=== PATIENT | female | born 1950 | race American Indian/Alaskan Native ===

== ENCOUNTER 2016-07-17 16:57 | Inpatient (IN) | payer MEDICARE ==
[2016-07-17] MEDS ORDERED: TYLENOL PO PRN (17:29)
[2016-07-17] MEDS ORDERED: SENOKOT PO PRN (17:29)
[2016-07-17] MEDS ORDERED: DULCOLAX PR PRN (17:29)
[2016-07-17] MEDS ORDERED: D50W (25GM) IV PRN (17:29)
[2016-07-17] MEDS ORDERED: AMBIEN PO PRN (17:34)
--- NOTE | 2016-07-17 17:37 | History and Physical Report ---
History of Present Illness Date: 07/17/16 Referring Facility: [facility] Date of admission: 07/17/16 17:28 Chief Complaint: right osteoarthritis, s/p right TKA History of present illness: POST ADMISSION PHYSICIAN EVALUATION ONSET DATE: 07/15/2016 IMPAIRMENT GROUP CODE: 08.51 ETIOLOGIC DIAGNOSIS: right TKA secondary to Osteoarthritis STATUS CHANGES SINCE PREADMISSION SCREENING: PAS has been reviewed. In comparison, pt is more alert on admission; pain well controlled when at rest. Pt continues to have functional deficits with self cares and mobility. Pt remains an appropriate candidate for IPR. PREVIOUS FUNCTIONAL STATUS: Independent with ADLs, transfer; ambulated with RW CURRENT FUNCTIONAL STATUS: Independent to maxA for ADLs; Justin for transfers; CGA 20 feet with RW HPI 66 y.o.morbidly obese female admitted to [facility] for an elective right TKA secondary to osteoarthritis. Pt reports progressively worsening pain and need for assistive device for gait; failed conservative therapy. Post-op course notable for drop in H/H from 12.4/39.6 to 10.8/35.5; hypotension (lowest 83/42) ; hyperkalemia (5.7); gait dysfunction. Pt noted to have significant decline in function following therapy evaluations. Pt is now admitted for aggressive therapies and ongoing medical management. Past History Past Medical History: arthritis, hypertension, hyperlipidemia Past Surgical History: total knee replacement (right) Social history: Lives alone (brother to be with her following surgery). denies : smoking, alcohol abuse Family history: diabetes, hypertension Medications and Allergies Allergies Allergy/AdvReac Type Severity Reaction Status Date / Time Sulfa (Sulfonamide Allergy Rash, Verified 02/20/15 15:43 Antibiotics) swelling Home Medications Medication Instructions Recorded Confirmed Last Taken Type Glimepiride 2.5 mg PO DAILY 06/05/13 07/15/16 07/14/16 09:30 History Simvastatin 40 mg PO QPM 06/05/13 07/15/16 07/13/16 21:00 History Lisinopril/Hydrochlorothiazide 1 tab PO QDAY 02/20/15 07/15/16 07/15/16 07:00 History [Zestoretic 20-12.5 mg] Ergocalciferol [Vitamin D2] 1 cap PO QWEEK 07/01/16 07/15/16 Unknown History Active Meds: Active Medications Acetaminophen (Tylenol) 650 mg PO Q4H PRN PRN Reason: Pain MILD(1-3)/Fever >100.5/BOATENG Aspirin (Aspirin) 325 mg PO BID [facility] Bisacodyl (Dulcolax) 10 mg VA QDAY PRN PRN Reason: Constipation unrelieved by MOM Dextrose (D50w (25gm)) 50 ml IV PRN PRN PRN Reason: Hypoglycemia Docusate Sodium (Colace) 100 mg PO BID [facility] Ergocalciferol (Vitamin D2) unit PO QWEEK [facility] Insulin Aspart (Novolog) 0 units SUB-Q ACHS [place] PRN Reason: Protocol Miscellaneous Medication (Lisinopril/Hydrochlorothiazide [Zestoretic 20-12.5 Mg] ) 1 tab PO QDAY [facility] Oxycodone/Acetaminophen (Percocet 5/325) 1 tab PO Q6H PRN PRN Reason: Pain, Moderate (4-6) Senna (Senokot) 8.6 mg PO Q12H PRN PRN Reason: Laxative Effect Simvastatin (Zocor) 40 mg PO QHS [facility] Review of Systems All systems: negative Constitutional: poor appetite Cardiovascular: no chest pain Respiratory: no cough Gastrointestinal: constipation Genitourinary Female: other (downey) Musculoskeletal: gait dysfunction, other (right knee pain) Exam - Constitutional General appearance: no acute distress, other (sitting up in bed) - EENT Eyes: EOM intact ENT: hearing intact - Neck Neck: supple, normal ROM - Respiratory Respiratory effort: normal Respiratory: bilateral: CTA - Cardiovascular Rhythm: regular Heart Sounds: Present: S1 & S2 - Extremities Extremity abnormal: edema (right knee), other (kelli in place to right knee; minimal bloody drainage noted) - Gastrointestinal General gastrointestinal: Present: soft, non-tender, non-distended, normal bowel sounds - Musculoskeletal Musculoskeletal: other (intact right ankle DF/PF; LLE and BUE within normal limits) - Neurologic Neurologic: CNII-XII intact, other (sensation grossly intact) - Psychiatric Psychiatric: appropriate mood/affect, intact judgment & insight, memory intact, cooperative Assessment and Plan Assessment and plan: 66 y.o.morbidly obese female s/p right TKA secondary to osteoarthritis. Post- op course significant for hypotension, gait dysfunction, hyperkalemia. The patient is medically stable, however, requires ongoing medical management. Pt is appropriate for inpatient rehabilitation admission and is thought to be able to tolerate at least 3 hours of therapy a day, 5 days a week including 1.5 hours of physical therapy and 1.5 hours of occupational therapy. Patient is able to understand and follow basic directions and has attainable rehab goals. Potential barriers/complications include infection, anemia, syncopem hypotension , DVT, PE, falls, hypoglycemia, uncontrolled pain. Plan 1. Rehabilitation- Pt will undergo multidisciplinary/integrative rehab PT/OT, Nursing. Areas to be addressed include, but are not limited to PT for mobility , strengthening, transfer training, ROM, endurance, stairs, balance; OT for ADLs , household tasks, adaptive equipment; Nursing for carryover of therapies, pain control, education, skin integrity, medication management, bowel/bladder management; Nutrition as needed; shared services representative for discharge planning and equipment needs. Potential interventions include appropriate assistive device or adaptive equipment. Expected overall level of functional improvement by discharge is Krysten for ADLs, gait, transfers. Pt will tentatively be discharged home with outpatient PT. Estimated length of stay is 7-10 days. 2. s/p right TKA- pain control; dressing changes; d/c kelli on POD #14 3. HTN- resume home meds; follow closely to avoid hypotension 4. DM- continue home regimen; pt with decreased appetite, follow closely to avoid hypoglycemia 5. hyperkalemia- recheck labs in AM 6. constipation- Colace BID, prn laxative 7. DVT px- ASA 325mg BID per Ortho - Patient Problems (1) DJD (degenerative joint disease) of knee Current Visit: No Status: Chronic Qualifiers: Osteoarthritis type: primary Laterality: right Qualified Code(s): M17.11 - Unilateral primary osteoarthritis, right knee (2) Status post total right knee replacement Current Visit: Yes Status: Acute (3) Unsteady gait Current Visit: Yes Status: Acute (4) HTN (hypertension) Current Visit: Yes Status: Chronic Qualifiers: Hypertension type: essential hypertension Qualified Code(s): I10 - Essential (primary) hypertension (5) Diabetes Current Visit: Yes Status: Chronic Qualifiers: Diabetes mellitus type: type 2 Diabetes mellitus complication status: with hyperglycemia Diabetes mellitus complication detail: D Diabetic retinopathy severity: D Proliferative retinopathy type: P Diabetes mellitus macular edema: D Diabetes mellitus prison insulin use: without prison use Laterality: L Chronic kidney disease stage: C Qualified Code(s): E11.65 - Type 2 diabetes mellitus with hyperglycemia (6) Morbid obesity due to excess calories Current Visit: Yes Status: Acute
[2016-07-17] MEDS: ASPIRIN PO SCH (22:01)
[2016-07-17] MEDS: OxyCONTIN PO SCH (22:02)
[2016-07-17] MEDS: ZOCOR PO SCH (22:02)
[2016-07-17] MEDS: COLACE PO SCH (22:02)
[2016-07-17] MEDS: PERCOCET 5/325 PO PRN (22:06)
[2016-07-17] MEDS: NOVOLOG SUB-Q SCH (22:14)
[2016-07-18 05:05] LABS: Basophils % (Auto) 0.6 % (0.0-1.8); Eosinophils % (Auto) 0.3 % (0.0-4.3); Hematocrit 25.9 % (30.3-42.9); Hemoglobin 8.5 gm/dl (10.1-14.3); Mean Corpuscular HGB Conc 33 % (30-34); Mean Corpuscular Hemoglobin 29 pg (28-32); Mean Corpuscular Volume 90 fl (79-97); Platelet Count 259 K/mm3 (140-440); Red Blood Count 2.87 M/mm3 (3.65-5.03); Red Cell Distribution Width 13.5 % (13.2-15.2); White Blood Count 11.2 K/mm3 (4.5-11.0)
[2016-07-18 05:33] LABS: Albumin 2.7 g/dL (3.9-5); Albumin/Globulin Ratio 0.7 %; Alkaline Phosphatase 99 units/L (35-129); Bilirubin,Total 0.4 mg/dL (0.1-1.2); Blood Urea Nitrogen 21 mg/dL (7-17); Calcium 8.4 mg/dL (8.4-10.2); Carbon Dioxide 23 mmol/L (22-30); Chloride 102.7 mmol/L (98-107); Glucose 84 mg/dL (65-100); Sodium 138 mmol/L (137-145); Total Protein 6.4 g/dL (6.3-8.2)
[2016-07-18 05:52] LABS: Alanine Aminotransferase 7 units/L (7-56); Anion Gap 17 mmol/L; Potassium 4.2 mmol/L (3.6-5.0)
[2016-07-18] MEDS ORDERED: NON-FORMULARY (Lisinopril/Hydrochlorothiazide [Zestoretic 20-12.5 Mg] 1 TAB) PO SCH (08:00)
[2016-07-18] MEDS: NOVOLOG SUB-Q SCH ×4 (08:21→21:43)
[2016-07-18] MEDS: AMARYL PO SCH (10:12)
[2016-07-18] MEDS: COLACE PO SCH ×2 (10:13→21:42)
[2016-07-18] MEDS: ASPIRIN PO SCH ×2 (10:13→21:42)
[2016-07-18] MEDS: THERAGRAN Tab PO SCH (10:14)
[2016-07-18] MEDS: OxyCONTIN PO SCH ×2 (10:15→21:42)
[2016-07-18] MEDS: ZESTRIL PO SCH (10:22)
[2016-07-18] MEDS: HCTZ PO SCH (10:23)
[2016-07-18] MEDS: PERCOCET 5/325 PO PRN (13:11)
[2016-07-18] MEDS: ZOCOR PO SCH (21:42)
[2016-07-19] MEDS: NOVOLOG SUB-Q SCH ×4 (08:53→22:04)
[2016-07-19] MEDS: HCTZ PO SCH (08:54)
[2016-07-19] MEDS: ASPIRIN PO SCH ×2 (08:54→22:04)
[2016-07-19] MEDS: COLACE PO SCH ×2 (08:55→22:04)
[2016-07-19] MEDS: AMARYL PO SCH (08:55)
[2016-07-19] MEDS: ZESTRIL PO SCH (08:55)
[2016-07-19] MEDS: THERAGRAN Tab PO SCH (08:55)
[2016-07-19] MEDS: OxyCONTIN PO SCH ×2 (10:22→22:04)
[2016-07-19] MEDS: ZOCOR PO SCH (22:04)
[2016-07-20 05:05] LABS: Hematocrit 24.7 % (30.3-42.9); Hemoglobin 8.1 gm/dl (10.1-14.3); Mean Corpuscular HGB Conc 33 % (30-34); Mean Corpuscular Hemoglobin 29 pg (28-32); Mean Corpuscular Volume 90 fl (79-97); Platelet Count 255 K/mm3 (140-440); Red Blood Count 2.75 M/mm3 (3.65-5.03); Red Cell Distribution Width 13.7 % (13.2-15.2); White Blood Count 8.3 K/mm3 (4.5-11.0)
[2016-07-20 05:29] LABS: Anion Gap 15 mmol/L; Blood Urea Nitrogen 33 mg/dL (7-17); Calcium 8.5 mg/dL (8.4-10.2); Carbon Dioxide 27 mmol/L (22-30); Chloride 100.7 mmol/L (98-107); Glucose 98 mg/dL (65-100); Potassium 4.8 mmol/L (3.6-5.0); Sodium 138 mmol/L (137-145)
[2016-07-20] MEDS: COLACE PO SCH ×2 (08:48→21:59)
[2016-07-20] MEDS: THERAGRAN Tab PO SCH (08:48)
[2016-07-20] MEDS: ZESTRIL PO SCH (08:48)
[2016-07-20] MEDS: HCTZ PO SCH (08:48)
[2016-07-20] MEDS: AMARYL PO SCH (08:49)
[2016-07-20] MEDS: ASPIRIN PO SCH ×2 (08:49→21:59)
[2016-07-20] MEDS: NOVOLOG SUB-Q SCH ×4 (08:49→22:00)
[2016-07-20] MEDS ORDERED: VITAMIN D2 PO SCH (10:00)
[2016-07-20] MEDS: OxyCONTIN PO SCH ×2 (10:35→21:59)
--- NOTE | 2016-07-20 12:28 | IRU Plan of Care ---
Interdisciplinary Plan of Care - IP IRU INTERDISCIPLINARY PLAN: [facility] Inpatient Rehab Unit Plan of Care IRU Interdisciplinary Care Plan Start: 07/17/16 20: 12 Freq: Admission then PRN Status: Active Document 07/20/16 09:09 DB (Rec: 07/20/16 09:13 DB [id number]) Interdisciplinary Problem List Interdisciplinary Problem List Interdisciplinary Problem List Impaired Bathing/Grooming Query Text:Answers will Trigger Problems Impaired Dressing and Outcomes on Worklist. Impaired Mobility Impaired Transfers Impaired Toileting Pain Management Knowledge Deficits Impaired Skin/Tissue Integrity Impaired Safety Medications Education Diabetes Education IRU Interdisciplinary Care Plan Therapy Services Therapy Services Will Include: Physical Therapy Query Text:Patient will be seen for a Occupational Therapy minimum of 3 hours of daily therapy 5 out of 7 days a week. Therapy intensity may be adjusted within a 7 consecutive day period to effectively serve the individual needs of the patient. Treatment Frequency/Intensity/Duration Treatment Frequency 5 days per week Treatment Intensity 1.5 hours (PT/OT each) per week Treatment Duration 10-14 days Problem Area: Eating/Swallowing Eating/Swallowing Outcomes Eating/Swallowing Interventions Problem Area: Bathing/Grooming Bathing/Grooming Outcomes Improve [place] w/ Grooming Improve Osborne w/ Bathing Bathing/Grooming Interventions ADL Training Use of Assistive Devices Therapeutic Exercise Therapeutic Activity Balance Work Activity Tolerance Work Patient/Caregiver Education Problem Area: Dressing Dressing Outcomes Improve [place] w/ UB Dressing Improve Osborne w/ LB Dressing Dressing Interventions ADL Training Use of Assistive Devices Therapeutic Exercise Balance Work Patient/Caregiver Education Problem Area: Mobility Mobility Outcomes Improve [place] w/ Bed Mobility Improve [place]borne w/ Ambulation Improve [place] w/ Stairs /Curb Improve [place]borne w/ Wheelchair Mobility Interventions Therapeutic Exercise Neuromuscular Re-Ed. Use of Assistive Devices Patient/Caregiver Education Bed Mobility Work Gait Training W/C Mobility Work Problem Area: Transfers Transfers Outcomes Improve [place] w/ Bed Transfers Improve [place] w/ Toilet Transfers Improve [place] w/ Tub/ Shower Transfers Improve Osborne w/ Car Transfers Transfers Interventions Transfer Training Therapeutic Exercise Activity Tolerance Work Use of Assistive Devices Patient/Caregiver Education Problem Area: Bowel/Bladder Managment Bowel/Bladder Outcomes Bowel/Bladder Interventions Problem Area: Toileting Toileting Outcomes Improve [place] w/ Toileting Toileting Interventions ADL Training Balance Work Use of Assistive Devices Patient/Caregiver Education Problem Area: Nutrition Nutrition Outcomes Understand and Comply w/ Diet Improve/Maintain Oral Intake Nutrition Interventions Nutritional Counseling Monitor Nutrient Intake Problem Area: Comprehension Comprehension Outcomes Comprehension Interventions Problem Area: Expression Expression Outcomes Expression Interventions Problem Area: Problem Solving Problem Solving Outcomes Problem Solving Interventions Problem Area: Memory Memory Outcomes Memory Interventions Problem Area: Pain Management Pain Management Outcomes Demonstrate/Verbalize Pain Strategies Pain Management Interventions Medication Management Stress Management Use of Devices/Modalities ( TENS, hot pack, cold pack, etc .) Positioning/Turning Patient/Caregiver Education Problem Area: Knowledge Deficits Knowledge Deficits Outcomes Demonstrate Ability to Manage Blood Glucose Demonstrate Understanding of Anticoagulation Verbalize Precautions Knowledge Deficits Interventions Disease/Injury/Sx. Intervention Education Medication Use Education Body Mechanics/Joint Protection Education Disease Management Education Health Maintainence Education Safety Education Energy Conservation Education Problem Area: Skin/Tissue Integrity Skin/Tissue Integrity Outcomes Exhibit Healing of Wound/ Incision Demonstrate Understanding of Pressure Relief Skin/Tissue Integrity Interventions Skin/Wound Care Pressure Relief Instruction Dressing Change Education Positioning/Turning Problem Area: Social Interaction Social Interaction Outcomes Social Interaction Interventions Problem Area: Adjustment to Disability Adjustment to Disability Outcomes Adjustment to Disability Interventions Problem Area: Discharge Concerns Discharge Concerns Outcomes Discharge Home w/ Necessary Equipment Have Home Health/Outpatient Services Discharge Concerns Interventions Discharge Planning Family/Caregiver Conference Family/Caregiver Training Problem Area: Community Reintegration Community Reintegration Outcomes Demonstrate Understanding of Community Resources Community Reintegration Interventions Provide Community Resources Problem Area: Home Management Home Management Outcomes Home Management Interventions Problem Area: Safety Safety Outcomes Provide Safe Environment Perform Selfcare Safely Demonstrate Good Safety w/ Transfers/Mobility Safety Interventions Identify Fall Risk [place] Pt. to Environment Reduce Environmental Hazards Problem Area: Medication Education Medication Education Outcomes Patient/Caregiver will Verbalize Understanding of Medications Medication Education Interventions Explain Administration/Side Effects/Interactions Problem Area: Diabetes Education Diabetes Education Outcomes Demonstrate Knowledge of Resources Availlable in Diabetic Ed. Folder Diabetes Education Interventions Give Pt. Diabetes Education Folder Discuss Pathophysiology of Diabetes Review Instruction on Making Appointment for Outpatient Program Problem Area: Oxygenation Oxygenation Outcomes Oxygenation Interventions Problem Area: Cardiovascular Cardiovascular Outcomes Cardiovascular Interventions Physician Only Medical Prognosis and Rehabilitation Patient demonstrates good Potential (Completed by Physician) rehab potential. Medical Prognosis: Good This plan of care has been developed based on the findings from the pre- admission assessment, post admission physician evaluation, information gathered from the assessments from all therapy disciplines and other pertinent clinicians. The plan of care has been reviewed and discussed in collaboration with the interdisciplinary team. The plan of care will be reviewed and updated at least weekly. 66 y.o.morbidly obese female s/p right TKA secondary to osteoarthritis. Post- op course significant for hypotension, gait dysfunction, hyperkalemia. The patient remains at risk for infection, anemia, syncope, hypotension, DVT, PE, falls, hypoglycemia, uncontrolled pain. Blood pressure continues to fluctuate ( SBP range 100-181); also with hypoglycemia (low of 52 since admission) likely due to limited po intake. Will need ongoing management of DM and HTN; ongoing pain control. Pt complains of constipation on today. Will modify bowel regimen. Hyperkalemia has resolved. Pt continues with functional deficits; remains an appropriate candidate for IRU admission.
--- NOTE | 2016-07-20 12:38 | Progress Note ---
Assessment and Plan 66 y.o.morbidly obese female s/p right TKA secondary to osteoarthritis - s/p right TKA- healing well, continue with current regimen for pain control - unsteady gait- ongoing gait training with PT - HTN- fluctuating blood pressures; hold HCTZ for now due to hypotension and elevated BUN; follow - DM- hypoglycemia noted over weekend; improved po intake on yesterday; follow to avoid hypoglycemia - hyperkalemia- resolved - constipation- Colace BID, change senna to scheduled - DVT px- ASA 325mg BID per Ortho - Patient Problems (1) DJD (degenerative joint disease) of knee Current Visit: No Status: Chronic Qualifiers: Osteoarthritis type: primary Laterality: right Qualified Code(s): M17.11 - Unilateral primary osteoarthritis, right knee (2) Status post total right knee replacement Current Visit: Yes Status: Acute (3) Unsteady gait Current Visit: Yes Status: Acute (4) HTN (hypertension) Current Visit: Yes Status: Chronic Qualifiers: Hypertension type: essential hypertension Qualified Code(s): I10 - Essential (primary) hypertension (5) Diabetes Current Visit: Yes Status: Chronic Qualifiers: Diabetes mellitus type: type 2 Diabetes mellitus complication status: with hyperglycemia Diabetes mellitus complication detail: D Diabetic retinopathy severity: D Proliferative retinopathy type: P Diabetes mellitus macular edema: D Diabetes mellitus intermediate manager insulin use: without halfway use Laterality: L Chronic kidney disease stage: C Qualified Code(s): E11.65 - Type 2 diabetes mellitus with hyperglycemia (6) Morbid obesity due to excess calories Current Visit: Yes Status: Acute Subjective Date of service: 07/20/16 Principal diagnosis: right TKA Interval history: Pt seen in room this AM, F/U IPR course, s/p right TKA. Pt reports constipation ; ongoing pain Objective - Constitutional Vitals: Vital Signs - 12hr 07/20/16 08:00 Temperature 97.6 F Pulse Rate [ 109 H Left Brachial] Respiratory 20 Rate Blood Pressure 125/54 [Left Arm] O2 Sat by Pulse 96 Oximetry General appearance: Present: mild distress (secondary to pain), obese - EENT Eyes: EOM intact ENT: hearing intact - Neck Neck: supple, normal ROM - Respiratory Respiratory effort: normal Respiratory: bilateral: CTA - Cardiovascular Rhythm: regular Heart Sounds: Present: S1 & S2 Extremity abnormal: edema (right knee), other (kelli intact to right knee; no drainage; mild redness at insertion site of kelli) - Gastrointestinal General gastrointestinal: Present: soft, non-tender, non-distended, normal bowel sounds - Neurologic Neurologic: CNII-XII intact, moves all extremities - Psychiatric Psychiatric: appropriate mood/affect, intact judgment & insight, memory intact, cooperative - Allied health notes Allied health notes reviewed: PT (CGA-Justin for transfers, bed mobility, gait), OT (SBA for transfers; s/u for LB dressing) - Labs CBC & Chem 7: 07/20/16 04:48 07/20/16 04:48 Labs: Abnormal lab results 07/19/16 07/19/16 07/19/16 Range/Units 12:41 13:16 14:54 RBC (3.65-5.03) M/mm3 Hgb (10.1-14.3) gm/dl Hct (30.3-42.9) % BUN (7-17) mg/dL POC Glucose 56 L 66 L 114 H (70-105) 07/19/16 07/19/16 07/20/16 Range/Units 17:07 18:25 04:48 RBC 2.75 L (3.65-5.03) M/mm3 Hgb 8.1 L (10.1-14.3) gm/dl Hct 24.7 L (30.3-42.9) % BUN (7-17) mg/dL POC Glucose 52 L 106 H (70-105) 07/20/16 07/20/16 Range/Units 04:48 11:36 RBC (3.65-5.03) M/mm3 Hgb (10.1-14.3) gm/dl Hct (30.3-42.9) % BUN 33 H (7-17) mg/dL POC Glucose 112 H (70-105)
[2016-07-20] MEDS: SENOKOT PO SCH (14:58)
[2016-07-20] MEDS: ZOCOR PO SCH (21:59)
[2016-07-21] MEDS: SENOKOT PO SCH ×2 (01:10→13:55)
[2016-07-21] MEDS: AMARYL PO SCH (08:47)
[2016-07-21] MEDS: NOVOLOG SUB-Q SCH ×4 (08:47→22:00)
[2016-07-21] MEDS: ASPIRIN PO SCH ×2 (08:48→21:59)
[2016-07-21] MEDS: OxyCONTIN PO SCH ×3 (08:48→21:59)
[2016-07-21] MEDS: COLACE PO SCH ×2 (08:49→21:59)
[2016-07-21] MEDS: THERAGRAN Tab PO SCH (08:49)
[2016-07-21] MEDS: ZESTRIL PO SCH (08:53)
[2016-07-21] MEDS: PERCOCET 5/325 PO PRN ×2 (13:55→22:04)
--- NOTE | 2016-07-21 16:35 | Progress Note ---
Assessment and Plan 66 y.o.morbidly obese female s/p right TKA secondary to osteoarthritis - s/p right TKA- healing well, continue with current regimen for pain control - unsteady gait- CGA for gait with RW - HTN- stable; continue to follow - DM- continues with intermittent hypoglycemia and fluctuating po intake; will d /c amaryl until oral intake improves - constipation- resolved - DVT px- ASA 325mg BID per Ortho - team conference held on today- pt is s/u for eating, grooming, and UB dressing ; SBA for UB dressing, toilet/shower transfers; supervision for bed/chair/WC transfers; Krysten for toileting and bed mobility; Justin for LB dressing; CGA for 230 feet with RW. Anticipated d/c date 07/24 vs 07/27 based on progress. - Patient Problems (1) DJD (degenerative joint disease) of knee Current Visit: No Status: Chronic Qualifiers: Osteoarthritis type: primary Laterality: right Qualified Code(s): M17.11 - Unilateral primary osteoarthritis, right knee (2) Status post total right knee replacement Current Visit: Yes Status: Acute (3) Unsteady gait Current Visit: Yes Status: Acute (4) HTN (hypertension) Current Visit: Yes Status: Chronic Qualifiers: Hypertension type: essential hypertension Qualified Code(s): I10 - Essential (primary) hypertension (5) Diabetes Current Visit: Yes Status: Chronic Qualifiers: Diabetes mellitus type: type 2 Diabetes mellitus complication status: with hyperglycemia Diabetes mellitus complication detail: D Diabetic retinopathy severity: D Proliferative retinopathy type: P Diabetes mellitus macular edema: D Diabetes mellitus laborer marine terminal insulin use: without laborer marine terminal use Laterality: L Chronic kidney disease stage: C Qualified Code(s): E11.65 - Type 2 diabetes mellitus with hyperglycemia (6) Morbid obesity due to excess calories Current Visit: Yes Status: Acute Subjective Date of service: 07/21/16 Principal diagnosis: right TKA Interval history: Pt seen in room this AM, F/U IPR course, s/p right TKA. Constipation resolved. Pain is well controlled. Pt reports that she does not want to take celebrex as this has made her feel "loopy" in the past; will place as adverse reaction and discontinue Objective - Constitutional Vitals: Vital Signs - 12hr 07/21/16 07/21/16 08:30 08:53 Temperature 97.7 F Pulse Rate 85 Pulse Rate [ 85 Left Brachial] Respiratory 18 Rate Blood Pressure 110/52 Blood Pressure 110/52 [Left Arm] O2 Sat by Pulse 100 Oximetry General appearance: Present: no acute distress, obese, other (eating breakfast) - EENT Eyes: EOM intact ENT: hearing intact - Neck Neck: supple, normal ROM - Respiratory Respiratory effort: normal - Gastrointestinal General gastrointestinal: Present: soft, non-tender - Neurologic Neurologic: CNII-XII intact, moves all extremities - Psychiatric Psychiatric: appropriate mood/affect, intact judgment & insight, memory intact, cooperative - Labs CBC & Chem 7: 07/20/16 04:48 07/20/16 04:48 Labs: Abnormal lab results 07/20/16 07/21/16 Range/Units 20:54 15:57 POC Glucose 111 H 47 L (70-105)
[2016-07-21] MEDS: ZOCOR PO SCH (21:59)
[2016-07-22 04:59] LABS: Hematocrit 27.3 % (30.3-42.9); Mean Corpuscular HGB Conc 33 % (30-34); Mean Corpuscular Hemoglobin 30 pg (28-32); Mean Corpuscular Volume 90 fl (79-97); Platelet Count 337 K/mm3 (140-440); Red Blood Count 3.04 M/mm3 (3.65-5.03); Red Cell Distribution Width 13.9 % (13.2-15.2); White Blood Count 8.1 K/mm3 (4.5-11.0)
[2016-07-22 05:31] LABS: Anion Gap 19 mmol/L; BUN/Creatinine Ratio 43.75; Blood Urea Nitrogen 35 mg/dL (7-17); Carbon Dioxide 24 mmol/L (22-30); Chloride 99.3 mmol/L (98-107); Glucose 91 mg/dL (65-100); Potassium 4.7 mmol/L (3.6-5.0); Sodium 138 mmol/L (137-145)
[2016-07-22] MEDS: NOVOLOG SUB-Q SCH ×4 (08:36→21:35)
[2016-07-22] MEDS: ZESTRIL PO SCH (08:38)
[2016-07-22] MEDS: COLACE PO SCH ×2 (08:38→21:32)
[2016-07-22] MEDS: ASPIRIN PO SCH ×2 (08:38→21:32)
[2016-07-22] MEDS: SENOKOT PO SCH (08:39)
[2016-07-22] MEDS: OxyCONTIN PO SCH ×3 (08:39→21:32)
[2016-07-22] MEDS: THERAGRAN Tab PO SCH (08:39)
[2016-07-22] MEDS: PERCOCET 5/325 PO PRN (12:48)
--- NOTE | 2016-07-22 16:59 | Progress Note ---
Assessment and Plan 66 y.o.morbidly obese female s/p right TKA secondary to osteoarthritis - s/p right TKA- healing well, pain increased at RLE calf; doppler negative for DVT - unsteady gait- CGA-close supervision for gait with RW - HTN- stable - DM- no further hypoglycemia - acute blood loss anemia- improving - DVT px- ASA 325mg BID per Ortho - Patient Problems (1) DJD (degenerative joint disease) of knee Current Visit: No Status: Chronic Qualifiers: Osteoarthritis type: primary Laterality: right Qualified Code(s): M17.11 - Unilateral primary osteoarthritis, right knee (2) Status post total right knee replacement Current Visit: Yes Status: Acute (3) Unsteady gait Current Visit: Yes Status: Acute (4) HTN (hypertension) Current Visit: Yes Status: Chronic Qualifiers: Hypertension type: essential hypertension Qualified Code(s): I10 - Essential (primary) hypertension (5) Diabetes Current Visit: Yes Status: Chronic Qualifiers: Diabetes mellitus type: type 2 Diabetes mellitus complication status: with hyperglycemia Diabetes mellitus complication detail: D Diabetic retinopathy severity: D Proliferative retinopathy type: P Diabetes mellitus macular edema: D Diabetes mellitus intermediate manager insulin use: without intermediate manager use Laterality: L Chronic kidney disease stage: C Qualified Code(s): E11.65 - Type 2 diabetes mellitus with hyperglycemia (6) Morbid obesity due to excess calories Current Visit: Yes Status: Acute (7) Acute blood loss anemia Current Visit: Yes Status: Acute Subjective Date of service: 07/22/16 Principal diagnosis: right TKA Interval history: Pt seen in room this afternoon, F/U IPR course, s/p right TKA. Pt with worsening RLE swelling on today; also with calf tenderness Objective - Constitutional Vitals: Vital Signs - 12hr 07/22/16 07/22/16 08:00 08:38 Temperature 97.8 F Pulse Rate 76 Pulse Rate [ 76 Left Brachial] Respiratory 20 Rate Blood Pressure 126/54 Blood Pressure 126/54 [Left Arm] O2 Sat by Pulse 98 Oximetry General appearance: Present: mild distress (RLE pain), obese - EENT Eyes: EOM intact ENT: hearing intact - Neck Neck: supple, normal ROM - Respiratory Respiratory effort: normal Extremity abnormal: edema (RLE knee and below), tenderness (RLE palpation at calf and ankle) - Gastrointestinal General gastrointestinal: Present: soft, non-tender, non-distended - Neurologic Neurologic: CNII-XII intact - Psychiatric Psychiatric: appropriate mood/affect, intact judgment & insight, memory intact, cooperative - Allied health notes Allied health notes reviewed: PT (Krysten for bed mobility and transfers; close Supervision-CGA for gait), OT (Krysten to supervision for ADLs) - Labs CBC & Chem 7: 07/22/16 04:24 07/22/16 04:24 Labs: Abnormal lab results 07/21/16 07/21/16 07/22/16 Range/Units 17:33 21:41 04:24 RBC 3.04 L (3.65-5.03) M/mm3 Hgb 9.0 L (10.1-14.3) gm/dl Hct 27.3 L (30.3-42.9) % BUN (7-17) mg/dL POC Glucose 108 H 116 H (70-105) 07/22/16 07/22/16 Range/Units 04:24 16:40 RBC (3.65-5.03) M/mm3 Hgb (10.1-14.3) gm/dl Hct (30.3-42.9) % BUN 35 H (7-17) mg/dL POC Glucose 126 H (70-105)
[2016-07-22] MEDS: ZOCOR PO SCH (21:31)
[2016-07-23] MEDS: NOVOLOG SUB-Q SCH ×4 (07:10→22:38)
[2016-07-23] MEDS: PERCOCET 5/325 PO PRN ×2 (07:53→21:41)
[2016-07-23] MEDS: ASPIRIN PO SCH ×2 (07:54→21:43)
[2016-07-23] MEDS: SENOKOT PO SCH (07:54)
[2016-07-23] MEDS: COLACE PO SCH ×2 (07:54→21:42)
[2016-07-23] MEDS: THERAGRAN Tab PO SCH (07:54)
--- NOTE | 2016-07-23 08:31 | Vascular Lab Report ---
Right Lower Extremity Venous Duplex Study: Reason for Exam: Pain and swelling of the right lower extremity. Comments on the Right: All veins visualized are freely compressible without evidence of internal echogenicity. Flow is spontaneous and phasic throughout. No evidence of acute or chronic thrombus is seen in any of the vessels visualized. Soft tissue density is consistent with tissue edema. Comments on the Left: A limited duplex study was done of the proximal veins of the left lower extremity. All veins visualized are freely compressible without evidence of internal echogenicity. Flow is spontaneous and phasic throughout. No evidence of acute or chronic thrombus is seen in any of the vessels visualized. Impression: No evidence of acute or chronic deep venous thrombosis in the right lower extremity.
[2016-07-23] MEDS: OxyCONTIN PO SCH ×2 (09:09→21:42)
[2016-07-23] MEDS: ZESTRIL PO SCH (14:49)
--- NOTE | 2016-07-23 17:23 | Progress Note ---
Assessment and Plan 66 y.o.morbidly obese female s/p right TKA secondary to osteoarthritis - s/p right TKA- pain control; TEDs to assist with swelling - unsteady gait- CGA-close supervision for gait with RW - HTN/DM- stable on current regimen - DVT px- ASA 325mg BID per Ortho - tentative d/c home on tomorrow - Patient Problems (1) DJD (degenerative joint disease) of knee Current Visit: No Status: Chronic Qualifiers: Osteoarthritis type: primary Laterality: right Qualified Code(s): M17.11 - Unilateral primary osteoarthritis, right knee (2) Status post total right knee replacement Current Visit: Yes Status: Acute (3) Unsteady gait Current Visit: Yes Status: Acute (4) HTN (hypertension) Current Visit: Yes Status: Chronic Qualifiers: Hypertension type: essential hypertension Qualified Code(s): I10 - Essential (primary) hypertension (5) Diabetes Current Visit: Yes Status: Chronic Qualifiers: Diabetes mellitus type: type 2 Diabetes mellitus complication status: with hyperglycemia Diabetes mellitus complication detail: D Diabetic retinopathy severity: D Proliferative retinopathy type: P Diabetes mellitus macular edema: D Diabetes mellitus group home insulin use: without group home use Laterality: L Chronic kidney disease stage: C Qualified Code(s): E11.65 - Type 2 diabetes mellitus with hyperglycemia (6) Morbid obesity due to excess calories Current Visit: Yes Status: Acute Subjective Date of service: 07/23/16 Principal diagnosis: right TKA Interval history: Pt seen in room this afternoon, F/U IPR course, s/p right TKA. Ongoing RLE swelling, however, able to participate with PT; doppler negative for DVT Objective - Constitutional Vitals: Vital Signs - 12hr 07/23/16 07/23/16 09:11 14:49 Temperature 98.0 F Pulse Rate 76 Pulse Rate [ 86 Left Brachial] Respiratory 20 Rate Blood Pressure 137/69 Blood Pressure 116/44 [Left Arm] O2 Sat by Pulse 100 Oximetry General appearance: Present: no acute distress, obese - EENT Eyes: EOM intact ENT: hearing intact - Neck Neck: supple, normal ROM - Respiratory Respiratory effort: normal Extremity abnormal: edema (RLE) - Neurologic Neurologic: CNII-XII intact, moves all extremities - Psychiatric Psychiatric: appropriate mood/affect, intact judgment & insight, memory intact, cooperative - Allied health notes Allied health notes reviewed: PT (Krysten for bed mobility and transfers; CGA- close supervision for gait>300 feet with RW) - Labs CBC & Chem 7: 07/22/16 04:24 07/22/16 04:24 Labs: Abnormal lab results 07/22/16 07/23/16 07/23/16 Range/Units 21:02 05:53 12:44 POC Glucose 125 H 113 H 139 H (70-105) 07/23/16 Range/Units 16:48 POC Glucose 145 H (70-105)
[2016-07-23] MEDS: ZOCOR PO SCH (21:42)
[2016-07-24] MEDS: NOVOLOG SUB-Q SCH ×3 (07:20→17:52)
[2016-07-24] MEDS: SENOKOT PO SCH (08:22)
[2016-07-24] MEDS: COLACE PO SCH (08:22)
[2016-07-24] MEDS: ASPIRIN PO SCH (08:22)
[2016-07-24] MEDS: THERAGRAN Tab PO SCH (08:23)
[2016-07-24] MEDS: OxyCONTIN PO SCH (09:49)
[2016-07-24 10:13] LABS: Anion Gap 19 mmol/L; BUN/Creatinine Ratio 33.75; Blood Urea Nitrogen 27 mg/dL (7-17); Calcium 9.4 mg/dL (8.4-10.2); Carbon Dioxide 23 mmol/L (22-30); Chloride 103.2 mmol/L (98-107); Glucose 139 mg/dL (65-100); Potassium 4.2 mmol/L (3.6-5.0); Sodium 141 mmol/L (137-145)
--- NOTE | 2016-07-24 10:16 | Discharge Summary ---
Providers - Providers Date of Admission: 07/17/16 17:28 Date of discharge: 07/24/16 Attending physician: BRIGETTE TREVINO 07/17/16 17:29 Occupational Therapy Evaluate and Treat [CONS] Routine Comment: Reason For Exam: s/p right TKA Physical Therapy Evaluation and Treat [CONS] Routine Comment: Reason For Exam: s/p right TKA Primary care physician: ELIAS MENEZES Hospitalization Reason for admission: right TKA Condition: Stable Hospital course: 66 y.o.morbidly obese female admitted to [facility] for an elective right TKA secondary to osteoarthritis and progressively worsening of knee pain. Post-op course notable for drop in H/H from 12.4/39.6 to 10.8/35.5; hypotension (lowest 83/42); hyperkalemia (5.7); gait dysfunction. Pt noted to have significant decline in function following therapy evaluations and was admitted to IRU for aggressive therapies and ongoing medical management. Blood pressure stabilized during IRU course, no further hypotension at this time. Pt was also noted to have intermittent episodes of hypoglycemia early in course due to decreased po intake; amaryl was discontinued at that time. Blood sugars have now improved and pt can resume home med. H/H dropped to 8.1/24.7 at lowest; however, improved to 9.0/27.3 on 07/22. Hypokalemia resolved. Functionally, pt showed good progress during course. On admission, pt required min/CGA for bed mobility , transfers, and gait 100 feet with RW; supervision with eating and grooming; maxA fro LB dressing; Justin for remaining ADLs. At the time of discharge, pt has progressed to [place] for bed mobility, SBA-Eboni for transfers; SBA for gait 135 feet x2; [place] for toileting, toilet transfers, dressing, and bathing; supervision for shower transfers. Family training was completed with brother prior to discharge. Pt is stable for discharge home. >30 mins spent on discharge process, medication reconciliation; pt education; pt has outpt Ortho appt on Wednesday, 07/27 Disposition: DC/TX HOME UNDER HOME HEALTH - Discharge Diagnoses (1) DJD (degenerative joint disease) of knee Status: Chronic Qualifiers: Osteoarthritis type: primary Laterality: right Qualified Code(s): M17.11 - Unilateral primary osteoarthritis, right knee (2) Status post total right knee replacement Status: Acute (3) Unsteady gait Status: Acute (4) HTN (hypertension) Status: Chronic Qualifiers: Hypertension type: essential hypertension Qualified Code(s): I10 - Essential (primary) hypertension (5) Diabetes Status: Chronic Qualifiers: Diabetes mellitus type: type 2 Diabetes mellitus complication status: with hyperglycemia Diabetes mellitus complication detail: D Diabetic retinopathy severity: D Proliferative retinopathy type: P Diabetes mellitus macular edema: D Diabetes mellitus motor vehicle representative insulin use: without motor vehicle representative use Laterality: L Chronic kidney disease stage: C Qualified Code(s): E11.65 - Type 2 diabetes mellitus with hyperglycemia (6) Morbid obesity due to excess calories Status: Acute Core Measure Documentation - Palliative Care Palliative Care/ Comfort Measures: Not Applicable - Core Measures Any of the following diagnoses?: none Exam - Constitutional Vitals: Temp Pulse Resp BP Pulse Ox 97.5 F L 104 H 20 104/56 97 07/24/16 08:45 07/24/16 08:45 07/24/16 08:45 07/24/16 08:45 07/24/16 08:45 General appearance: Present: no acute distress, obese - EENT Eyes: Present: EOM intact ENT: hearing intact - Neck Neck: Present: supple, normal ROM - Respiratory Respiratory effort: normal - Extremities Extremity abnormal: edema (RLE, slowly improving), other (kelli in place to right knee, no drainage) - Psychiatric Psychiatric: appropriate mood/affect, intact judgment & insight, memory intact, cooperative - Neurologic Neurologic: CNII-XII intact, moves all extremities Plan Activity: no driving until cleared by PCP, fall precautions Weight Bearing Status: Full Weight Bearing Diet: diabetic Special Instructions: physical therapy ([facility] care) Durable Medical Equipment Needed Upon Discharge: Walker-Rolling, Bedside Commode , other (shower chair; [facility]) Follow up with: EILAS MENEZES MD [Primary Care Provider] - 7 Days Prescriptions: Glimepiride [Amaryl] 2 mg PO QAMDIAB #30 tablet Lisinopril [Zestril TAB] 20 mg PO QDAY #30 tablet oxyCODONE /ACETAMINOPHEN [Percocet 5/325 mg] 1 tab PO Q6H PRN #60 tablet PRN Reason: Pain, Moderate (4-6) oxyCODONE ER [OxyCONTIN ER TAB] 10 mg PO Q12HR #7 tablet
[2016-07-24] MEDS: ZESTRIL PO SCH (14:00)
[2016-07-24 17:55] VITALS: BP 112/65
== END 2016-07-24 22:15 | disposition home health service (06) | DRG 554 ==
LOC: 3B 17:28 → EEVIPCON 17:28
PROVIDERS: ADMIT Family Medicine; ATTEND Family Medicine
DX: M17.11 Unilateral primary osteoarthritis, right knee (principal); Z68.42 Body mass index [BMI] 45.0-49.9, adult; D62 Acute posthemorrhagic anemia; E66.01 Morbid (severe) obesity due to excess calories; E87.5 Hyperkalemia; R26.9 Unspecified abnormalities of gait and mobility; Z60.2 Problems related to living alone; K59.00 Constipation, unspecified; I10 Essential (primary) hypertension; E11.65 Type 2 diabetes mellitus with hyperglycemia; Z88.8 Allergy status to other drugs, medicaments and biological substances; Z88.2 Allergy status to sulfonamides; Z83.3 Family history of diabetes mellitus; Z82.49 Family history of ischemic heart disease and other diseases of the circulatory system; Z89.611 Acquired absence of right leg above knee
CPT/HCPCS: 36415; 80048; 80053; 82962; 85025; 85027

== ENCOUNTER 2016-11-05 23:17 | Emergency (ER) | payer MEDICARE ==
[2016-11-05] MEDS ORDERED: PEPCID IV ONE (23:42)
[2016-11-05] MEDS ORDERED: NACL 0.9% 1000 ML 1,000 ML IV ONE (23:42)
[2016-11-05] MEDS ORDERED: BENADRYL IV ONE (23:42)
--- NOTE | 2016-11-06 00:21 | Emergency Department Report ---
ED Allergic Reaction HPI - General Chief complaint: Allergic Reaction Stated complaint: ALLERGIC REACTION Time Seen by Provider: 11/05/16 23:51 Source: patient Mode of arrival: Stretcher Limitations: No Limitations - History of Present Illness Initial Comments: 66-year-old female presents to the emergency department via EMS for evaluation of a possible allergic reaction. Patient states that this morning she ate a piece of Coconut red, banana bread, and drink some raspberry juice. She states she's never had anything raspberry previous the. At about 2 PM 70 and she began having swelling of her upper lip. She states the swelling was progressively getting worse so she called EMS. She denies difficulty breathing or the sensation of her throat closing up. She states this has happened previously with other foods. She states it is only her upper lip that swells. There are no other complaints. Complaint: allergic reaction -: Sudden, This afternoon Time: 14:00 Exposure: food Symptoms: lip swelling Severity: moderate Treatment Prior to Arrival: none - Related Data Home Medications Medication Instructions Recorded Confirmed Last Taken Simvastatin 40 mg PO QPM 06/05/13 07/18/16 07/13/16 21:00 Ergocalciferol [Vitamin D2] 1 cap PO QWEEK 07/01/16 07/18/16 Unknown Previous Rx's Medication Instructions Recorded Last Taken Type Acetaminophen [Acetaminophen TAB] 650 mg PO Q4H PRN #1 tablet 07/24/16 Unknown Rx Aspirin [Aspirin TAB] 325 mg PO BID tablet 07/24/16 Unknown Rx Docusate Sodium [Colace CAP] 100 mg PO BID capsule 07/24/16 Unknown Rx Glimepiride [Amaryl] 2 mg PO QAMDIAB #30 tablet 07/24/16 Unknown Rx Lisinopril [Zestril TAB] 20 mg PO QDAY #30 tablet 07/24/16 Unknown Rx Multivitamin Tab [Multiple Vitamin 1 each PO QDAY tablet 07/24/16 Unknown Rx TAB (Theragran)] Sennosides Tab [Senokot] 8.6 mg PO QDAY tablet 07/24/16 Unknown Rx oxyCODONE /ACETAMINOPHEN [Percocet 1 tab PO Q6H PRN #60 tablet 07/24/16 Unknown Rx 5/325 mg] oxyCODONE ER [OxyCONTIN ER TAB] 10 mg PO Q12HR #7 tablet 07/24/16 Unknown Rx Prednisone [predniSONE 5 mg (6-Day 5 mg PO .TAPER #1 tab.ds.pk 11/06/16 Unknown Rx Pack, 21 Tabs)] Allergies Allergy/AdvReac Type Severity Reaction Status Date / Time Sulfa (Sulfonamide Allergy Rash, Verified 02/20/15 15:43 Antibiotics) swelling celecoxib [From Celebrex] AdvReac Dizziness Verified 07/21/16 16:30 ED Review of Systems ROS: Stated complaint: ALLERGIC REACTION Other details as noted in HPI Comment: All other systems reviewed and negative ENT: as per HPI (upper lip swelling) ED Past Medical Hx - Past Medical History Previous Medical History?: Yes Hx Hypertension: Yes Hx Diabetes: Yes Hx Liver Disease: (DENIES) Hx Arthritis: Yes Hx Headaches / Migraines: Yes Hx Seizures: No Hx Tuberculosis: No Hx HIV: No - Surgical History Past Surgical History?: Yes Hx Pacemaker: No Additional Surgical History: R knee - Family History Family history: no significant - Social History Smoking Status: Never Smoker Substance Use Type: None - Medications Home Medications: Home Medications Medication Instructions Recorded Confirmed Last Taken Type Simvastatin 40 mg PO QPM 06/05/13 07/18/16 07/13/16 21:00 History Ergocalciferol [Vitamin D2] 1 cap PO QWEEK 07/01/16 07/18/16 Unknown History Acetaminophen [Acetaminophen TAB] 650 mg PO Q4H PRN #1 tablet 07/24/16 Unknown Rx Aspirin [Aspirin TAB] 325 mg PO BID tablet 07/24/16 Unknown Rx Docusate Sodium [Colace CAP] 100 mg PO BID capsule 07/24/16 Unknown Rx Glimepiride [Amaryl] 2 mg PO QAMDIAB #30 tablet 07/24/16 Unknown Rx Lisinopril [Zestril TAB] 20 mg PO QDAY #30 tablet 07/24/16 Unknown Rx Multivitamin Tab [Multiple Vitamin 1 each PO QDAY tablet 07/24/16 Unknown Rx TAB (Theragran)] Sennosides Tab [Senokot] 8.6 mg PO QDAY tablet 07/24/16 Unknown Rx oxyCODONE /ACETAMINOPHEN [Percocet 1 tab PO Q6H PRN #60 tablet 07/24/16 Unknown Rx 5/325 mg] oxyCODONE ER [OxyCONTIN ER TAB] 10 mg PO Q12HR #7 tablet 07/24/16 Unknown Rx Prednisone [predniSONE 5 mg (6-Day 5 mg PO .TAPER #1 tab.ds.pk 11/06/16 Unknown Rx Pack, 21 Tabs)] ED Physical Exam - General Limitations: No Limitations General appearance: alert, in no apparent distress - Head Head exam: Present: atraumatic, normocephalic - Eye Eye exam: Present: normal appearance, PERRL, EOMI - ENT ENT exam: Present: normal orophraynx, mucous membranes moist, other (moderate edema noted to upper lip. No edema noted to tongue or posterior pharynx) - Neck Neck exam: Present: normal inspection, full ROM. Absent: tenderness - Respiratory Respiratory exam: Present: normal lung sounds bilaterally. Absent: respiratory distress - Cardiovascular Cardiovascular Exam: Present: regular rate, normal rhythm, normal heart sounds - GI/Abdominal GI/Abdominal exam: Present: soft, normal bowel sounds. Absent: distended, tenderness - Extremities Exam Extremities exam: Present: normal inspection, full ROM. Absent: tenderness - Back Exam Back exam: Present: normal inspection, full ROM. Absent: tenderness - Neurological Exam Neurological exam: Present: alert, oriented X3. Absent: motor sensory deficit - Skin Skin exam: Present: warm, dry, intact ED Course Vital Signs 11/06/16 11/06/16 11/06/16 00:30 01:41 02:01 Pulse Rate 91 H 93 H Respiratory 14 12 14 Rate Blood Pressure 139/61 162/45 [Left] O2 Sat by Pulse 99 97 98 Oximetry ED Medical Decision Making - Lab Data Result diagrams: 11/06/16 00:06 11/06/16 00:06 - Medical Decision Making Lab results reviewed and discussed with the patient. Patient has been observed in the emergency department for 4 hours. Her symptoms have improved slightly following medications. Patient will be discharged home at this time to follow up with her primary care physician. - Differential Diagnosis allergic reaction, angioedema Critical care attestation.: If time is entered above; I have spent that time in minutes in the direct care of this critically ill patient, excluding procedure time. ED Disposition Clinical Impression: Allergic reaction Qualifiers: Encounter type: initial encounter Qualified Code(s): T78.40XA - Allergy, unspecified, initial encounter Disposition: TO HOME OR SELFCARE Is pt being admited?: No Condition: Stable Instructions: Food Allergy (ED) Prescriptions: Prednisone [predniSONE 5 mg (6-Day Pack, 21 Tabs)] 5 mg PO .TAPER #1 tab.ds.pk Referrals: ELIAS MENEZES MD [Primary Care Provider] - 3-5 Days Time of Disposition: 03:51
[2016-11-06 00:34] LABS: Basophils % (Auto) 0.7 % (0.0-1.8); Eosinophils % (Auto) 3.1 % (0.0-4.3); Hematocrit 35.3 % (30.3-42.9); Mean Corpuscular HGB Conc 31 % (30-34); Mean Corpuscular Hemoglobin 28 pg (28-32); Mean Corpuscular Volume 90 fl (79-97); Platelet Count 311 K/mm3 (140-440); Red Blood Count 3.93 M/mm3 (3.65-5.03); Red Cell Distribution Width 15.1 % (13.2-15.2); White Blood Count 6.4 K/mm3 (4.5-11.0)
[2016-11-06 00:56] LABS: Anion Gap 10 mmol/L; Blood Urea Nitrogen 21 mg/dL (7-17); Calcium 8.9 mg/dL (8.4-10.2); Carbon Dioxide 33 mmol/L (22-30); Chloride 98.9 mmol/L (98-107); Glucose 114 mg/dL (65-100); Potassium 4.2 mmol/L (3.6-5.0); Sodium 138 mmol/L (137-145)
[2016-11-06 04:55] VITALS: BP 126/87
== END 2016-11-06 05:04 | disposition home or self-care (01) ==
LOC: ED 23:17
DX: T78.40XA Allergy, unspecified, initial encounter (principal); Y92.9 Unspecified place or not applicable; I10 Essential (primary) hypertension; E11.9 Type 2 diabetes mellitus without complications; G43.909 Migraine, unspecified, not intractable, without status migrainosus
CPT/HCPCS: 36415; 80048; 85025; 96361; 96374; 96375; 99284; J1200; J2930; J7030

== ENCOUNTER 2017-09-21 07:57 | Emergency (ER) | payer MEDICARE ==
[2017-09-21 09:12] LABS: Hematocrit 38.7 % (30.3-42.9); Hemoglobin 12.9 gm/dl (10.1-14.3); Mean Corpuscular HGB Conc 33 % (30-34); Mean Corpuscular Hemoglobin 30 pg (28-32); Mean Corpuscular Volume 90 fl (79-97); Platelet Count 335 K/mm3 (140-440); Red Blood Count 4.31 M/mm3 (3.65-5.03); Red Cell Distribution Width 14.5 % (13.2-15.2)
[2017-09-21 09:24] LABS: Alanine Aminotransferase 10 units/L (7-56); Albumin 3.9 g/dL (3.9-5); BUN/Creatinine Ratio 37; Blood Urea Nitrogen 26 mg/dL (7-17); Calcium 9.6 mg/dL (8.4-10.2); Hemolysis Index 4
[2017-09-21 09:58] LABS: Basophils % (Manual) 0 % (0.0-1.8); Eosinophils % (Manual) 0 % (0.0-4.3); Platelet Estimate Cons; RBC Morphology Normal; Total Cells Counted 100
--- NOTE | 2017-09-21 11:17 | Emergency Department Report ---
ED General Adult HPI - General Chief complaint: Abdominal Pain Stated complaint: ABDOMINAL PAIN Time Seen by Provider: 09/21/17 10:56 Source: patient, EMS Mode of arrival: Wheelchair Limitations: No Limitations - History of Present Illness Initial comments: 67-year-old female complains of nonradiating suprapubic and lower quadrant intermittent pain since yesterday at about 1 AM. She states that by 4:00 she was having diarrhea. She denies sick contacts. She denies unusual diet or travel. She had some nausea and did vomit. She denies fever or chills. She states that she has not had pain like this before although she has been told she had gallstones. She had upper abdominal pain with gallstones. She has never had a cholecystectomy. -: Gradual Location: abdomen Radiation: non-radiation Quality: other (crampy) Consistency: intermittent, now resolved (largely resolved) Improves with: none Worsens with: none Associated Symptoms: denies other symptoms, nausea/vomiting (and diarrhea) - Related Data Home Medications Medication Instructions Recorded Confirmed Last Taken Simvastatin 40 mg PO QPM 06/05/13 07/18/16 07/13/16 21:00 Ergocalciferol [Vitamin D2] 1 cap PO QWEEK 07/01/16 07/18/16 Unknown Previous Rx's Medication Instructions Recorded Last Taken Type Acetaminophen [Acetaminophen TAB] 650 mg PO Q4H PRN #1 tablet 07/24/16 Unknown Rx Aspirin [Aspirin TAB] 325 mg PO BID tablet 07/24/16 Unknown Rx Docusate Sodium [Colace CAP] 100 mg PO BID capsule 07/24/16 Unknown Rx Glimepiride [Amaryl] 2 mg PO QAMDIAB #30 tablet 07/24/16 Unknown Rx Lisinopril [Zestril TAB] 20 mg PO QDAY #30 tablet 07/24/16 Unknown Rx Multivitamin Tab [Multiple Vitamin 1 each PO QDAY tablet 07/24/16 Unknown Rx TAB (Theragran)] Sennosides Tab [Senokot] 8.6 mg PO QDAY tablet 07/24/16 Unknown Rx oxyCODONE /ACETAMINOPHEN [Percocet 1 tab PO Q6H PRN #60 tablet 07/24/16 Unknown Rx 5/325 mg] oxyCODONE ER [OxyCONTIN ER TAB] 10 mg PO Q12HR #7 tablet 07/24/16 Unknown Rx Prednisone [predniSONE 5 mg (6-Day 5 mg PO .TAPER #1 tab.ds.pk 11/06/16 Unknown Rx Pack, 21 Tabs)] Levofloxacin [Levaquin TAB] 500 mg PO QDAY #5 tablet 09/21/17 Unknown Rx traMADol [Ultram] 50 mg PO Q6HR PRN #10 tablet 09/21/17 Unknown Rx Allergies Allergy/AdvReac Type Severity Reaction Status Date / Time Sulfa (Sulfonamide Allergy Rash, Verified 09/21/17 08:20 Antibiotics) swelling celecoxib [From Celebrex] AdvReac Dizziness Verified 09/21/17 08:20 ED Review of Systems ROS: Stated complaint: ABDOMINAL PAIN Other details as noted in HPI Constitutional: denies: chills, fever Eyes: denies: eye pain, eye discharge, vision change ENT: denies: ear pain, throat pain Respiratory: denies: cough, shortness of breath, wheezing Cardiovascular: denies: chest pain, palpitations Endocrine: no symptoms reported Gastrointestinal: as per HPI, abdominal pain, nausea, vomiting. denies: diarrhea Genitourinary: denies: urgency, dysuria, discharge Musculoskeletal: denies: back pain, joint swelling, arthralgia Skin: denies: rash, lesions Neurological: denies: headache, weakness, paresthesias Psychiatric: denies: anxiety, depression Hematological/Lymphatic: denies: easy bleeding, easy bruising ED Past Medical Hx - Past Medical History Hx Hypertension: Yes Hx Diabetes: Yes Hx Liver Disease: (DENIES) Hx Arthritis: Yes Hx Headaches / Migraines: Yes Hx Seizures: No Hx Tuberculosis: No Hx HIV: No - Surgical History Hx Pacemaker: No Additional Surgical History: R knee - Social History Smoking Status: Never Smoker Substance Use Type: None - Medications Home Medications: Home Medications Medication Instructions Recorded Confirmed Last Taken Type Simvastatin 40 mg PO QPM 06/05/13 07/18/16 07/13/16 21:00 History Ergocalciferol [Vitamin D2] 1 cap PO QWEEK 07/01/16 07/18/16 Unknown History Acetaminophen [Acetaminophen TAB] 650 mg PO Q4H PRN #1 tablet 07/24/16 Unknown Rx Aspirin [Aspirin TAB] 325 mg PO BID tablet 07/24/16 Unknown Rx Docusate Sodium [Colace CAP] 100 mg PO BID capsule 07/24/16 Unknown Rx Glimepiride [Amaryl] 2 mg PO QAMDIAB #30 tablet 07/24/16 Unknown Rx Lisinopril [Zestril TAB] 20 mg PO QDAY #30 tablet 07/24/16 Unknown Rx Multivitamin Tab [Multiple Vitamin 1 each PO QDAY tablet 07/24/16 Unknown Rx TAB (Theragran)] Sennosides Tab [Senokot] 8.6 mg PO QDAY tablet 07/24/16 Unknown Rx oxyCODONE /ACETAMINOPHEN [Percocet 1 tab PO Q6H PRN #60 tablet 07/24/16 Unknown Rx 5/325 mg] oxyCODONE ER [OxyCONTIN ER TAB] 10 mg PO Q12HR #7 tablet 07/24/16 Unknown Rx Prednisone [predniSONE 5 mg (6-Day 5 mg PO .TAPER #1 tab.ds.pk 11/06/16 Unknown Rx Pack, 21 Tabs)] Levofloxacin [Levaquin TAB] 500 mg PO QDAY #5 tablet 09/21/17 Unknown Rx traMADol [Ultram] 50 mg PO Q6HR PRN #10 tablet 09/21/17 Unknown Rx ED Physical Exam - General Limitations: No Limitations General appearance: alert, in no apparent distress - Head Head exam: Present: atraumatic, normocephalic - Eye Eye exam: Present: normal appearance. Absent: scleral icterus - ENT ENT exam: Present: mucous membranes moist - Neck Neck exam: Present: normal inspection. Absent: tenderness, meningismus - Respiratory Respiratory exam: Present: normal lung sounds bilaterally. Absent: respiratory distress - Cardiovascular Cardiovascular Exam: Present: regular rate, normal rhythm. Absent: systolic murmur, diastolic murmur, rubs, gallop - GI/Abdominal GI/Abdominal exam: Present: soft, normal bowel sounds, other (basically normal abdominal exam). Absent: distended, tenderness, guarding, rebound, rigid - Extremities Exam Extremities exam: Present: normal inspection, normal capillary refill. Absent: pedal edema, joint swelling, calf tenderness - Back Exam Back exam: Present: normal inspection. Absent: CVA tenderness (R), CVA tenderness (L) - Neurological Exam Neurological exam: Present: alert, oriented X3, CN II-XII intact. Absent: motor sensory deficit - Psychiatric Psychiatric exam: Present: normal affect, normal mood - Skin Skin exam: Present: warm, dry, intact, normal color. Absent: rash ED Course Vital Signs 09/21/17 09/21/17 09/21/17 08:20 10:39 10:40 Temperature 97.5 F L Pulse Rate 74 76 Respiratory 20 20 20 Rate Blood Pressure 148/76 Blood Pressure 152/86 [Right] O2 Sat by Pulse 99 100 100 Oximetry - Reevaluation(s) Reevaluation #1: Patient given IV fluids and analgesia and antiemetics. 09/21/17 13:36 Reevaluation #2: Symptoms have improved. Reexamination of the patient's abdomen is benign. 09/21/17 14:24 ED Medical Decision Making - Lab Data Result diagrams: 09/21/17 08:52 09/21/17 08:52 Laboratory Results - last 24 hr 09/21/17 09/21/17 08:52 08:52 WBC 10.0 RBC 4.31 Hgb 12.9 Hct 38.7 MCV 90 MCH 30 MCHC 33 RDW 14.5 Plt Count 335 Add Manual Diff Complete Total Counted 100 Seg Neutrophils % General Production Manager Seg Neuts % (Manual) 93.0 H Band Neutrophils % 0 Lymphocytes % (Manual) 6.0 L Reactive Lymphs % (Man) 0 Monocytes % (Manual) 1.0 Eosinophils % (Manual) 0 Basophils % (Manual) 0 Metamyelocytes % 0 Myelocytes % 0 Promyelocytes % 0 Blast Cells % 0 Nucleated RBC % Not Reportable Seg Neutrophils # Man 9.3 H Band Neutrophils # 0.0 Lymphocytes # (Manual) 0.6 L Abs React Lymphs (Man) 0.0 Monocytes # (Manual) 0.1 Eosinophils # (Manual) 0.0 Basophils # (Manual) 0.0 Metamyelocytes # 0.0 Myelocytes # 0.0 Promyelocytes # 0.0 Blast Cells # 0.0 WBC Morphology Not Reportable Hypersegmented Neuts Not Reportable Hyposegmented Neuts Not Reportable Hypogranular Neuts Not Reportable Smudge Cells Not Reportable Toxic Granulation Not Reportable Toxic Vacuolation Not Reportable Dohle Bodies Not Reportable Pelger-Huet Anomaly Not Reportable Chris Rods Not Reportable Platelet Estimate Cons Clumped Platelets Not Reportable Plt Clumps, EDTA Not Reportable Large Platelets Not Reportable Giant Platelets Not Reportable Platelet Satelliting Not Reportable Plt Morphology Comment Not Reportable RBC Morphology Normal Dimorphic RBCs Not Reportable Polychromasia Not Reportable Hypochromasia Not Reportable Poikilocytosis Not Reportable Anisocytosis Not Reportable Microcytosis Not Reportable Macrocytosis Not Reportable Spherocytes Not Reportable Pappenheimer Bodies Not Reportable Sickle Cells Not Reportable Target Cells Not Reportable Tear Drop Cells Not Reportable Ovalocytes Not Reportable Helmet Cells Not Reportable [place] Bodies Not Reportable Holder Rings Not Reportable [place] Cells Not Reportable Bite Cells Not Reportable Crenated Cell Not Reportable Elliptocytes Not Reportable Acanthocytes (Spur) Not Reportable Rouleaux Not Reportable Hemoglobin C Crystals Not Reportable Schistocytes Not Reportable Malaria parasites Not Reportable Jeff Bodies Not Reportable Hem Pathologist Commnt No Sodium 142 Potassium 4.2 Chloride 106.3 Carbon Dioxide 25 Anion Gap 15 BUN 26 H Creatinine 0.7 Estimated GFR > 60 BUN/Creatinine Ratio 37 Glucose 139 H Calcium 9.6 Total Bilirubin 0.30 AST 13 ALT 10 Alkaline Phosphatase 184 H Total Protein 8.4 H Albumin 3.9 Albumin/Globulin Ratio 0.9 - Radiology Data interpreted by me: Incidental left nephrolithiasis. Fluid in bowel Consistent with enteritis Critical care attestation.: If time is entered above; I have spent that time in minutes in the direct care of this critically ill patient, excluding procedure time. ED Disposition Clinical Impression: Enteritis Abdominal pain Qualifiers: Abdominal location: unspecified location Qualified Code(s): R10.9 - Unspecified abdominal pain Disposition: DC- TO HOME OR SELFCARE Is pt being admited?: No Does the pt Need Aspirin: No Condition: Stable Instructions: Abdominal Pain (ED), Gastroenteritis (ED) Additional Instructions: Light diet and advance as tolerated. Rx Levaquin. Ultram for pain if needed. Follow-up with your primary care provider. Return any acute change or problems. Prescriptions: Levofloxacin [Levaquin TAB] 500 mg PO QDAY #5 tablet traMADol [Ultram] 50 mg PO Q6HR PRN #10 tablet PRN Reason: Pain Referrals: ELIAS MENEZES MD [Primary Care Provider] - 3-5 Days Time of Disposition: 14:22
[2017-09-21 11:22] LABS: Bilirubin,Urine NEG (Negative); Blood,Urine SM (Negative); Color,Urine Yellow (Yellow); Mucus,Urine FEW /HPF; Protein,Urine <15 mg/dL mg/dL (Negative); Urobilinogen,Urine < 2.0 mg/dL (<2.0)
[2017-09-21] MEDS ORDERED: MORPHINE IV ONE (12:34)
[2017-09-21] MEDS ORDERED: ZOFRAN IV ONE (12:34)
[2017-09-21] MEDS ORDERED: NACL 0.9% 1000 ML 1,000 ML IV ONE (12:34)
[2017-09-21 15:02] VITALS: BP 147/66
--- NOTE | 2017-09-22 12:51 | Cat Scan Report ---
CT scan of abdomen and pelvis with IV contrast: History: Lower abdominal pain. Findings: Normal lung bases. No pleural pericardial effusion. Moderate-sized sliding hiatal hernia. Normal liver spleen pancreas and gallbladder. Normal adrenals. There is 1.5 cm nonobstructing calculus noted left kidney. Normal bladder. No free intraperitoneal air. Minimal fluid in the cul-de-sac. No evidence of adenopathy. Normal aorta. Fluid-filled loops of small bowel and large bowel without distention or wall thickening. No definite evidence of appendicitis or diverticulitis. Impression: Nonobstructing calculus left kidney. Minimal fluid in the cul-de-sac. Fluid-filled loops of small and large bowel probably suggestive of enteritis or diarrhea.
== END 2017-09-21 15:23 | disposition home or self-care (01) ==
LOC: ED 07:57
DX: K52.9 Noninfective gastroenteritis and colitis, unspecified (principal); R10.9 Unspecified abdominal pain; I10 Essential (primary) hypertension; E11.9 Type 2 diabetes mellitus without complications; G43.909 Migraine, unspecified, not intractable, without status migrainosus
CPT/HCPCS: 36415; 74177; 80053; 81001; 83690; 85007; 85025; 96361; 96374; 96375; 99284; J2270; J2405; J7030; Q9967